=== PATIENT | male | born 1950 | race Native Hawaiian/Other Pacific Islander ===

== ENCOUNTER 2019-02-28 15:50 | Emergency (ER) | payer OTHER ==
[~2019-02-28] VITALS: Ht 167.6 cm; Wt 77.1 kg
[2019-02-28 17:04] LABS: POTASSIUM 4.2 mmol/L (3.6-5.2)
[2019-02-28 17:48] LABS: PLATELET COUNT 321 K/uL (142-355)
[2019-02-28 20:30] VITALS: BP 134/88; TEMP 98.1
== END 2019-02-28 20:32 | disposition home or self-care (01) ==
LOC: EDBD 15:50 → ED 15:50
PROVIDERS: Student in an Organized Health Care Education/Training Program
DX: N13.2 Hydronephrosis with renal and ureteral calculous obstruction (principal)
CPT/HCPCS: 36415; 80053; 81000; 82962; 83690; 83735; 85027; 96360; 96365; 96375; 99284; J1885; J2270; J2405